=== PATIENT | female | born 1945 | race African-American/Black ===

== ENCOUNTER 2018-03-13 09:01 | Outpatient (CLI) | payer MEDICARE | END 2018-03-13 09:02 | disposition home or self-care (01) | LOC: BICMAMMO 09:01 | PROVIDERS: ATTEND Family Medicine | DX: N63.20 Unspecified lump in the left breast, unspecified quadrant (principal) | CPT/HCPCS: 76642; 77066; G0279 ==

== ENCOUNTER 2018-06-14 15:38 | Outpatient (CLI) | payer MEDICARE ==
--- NOTE | 2018-06-14 18:01 | ULT ---
LEFT BREAST ULTRASOUND: Date: 06/14/18 HISTORY: Left breast lump, history of trauma, follow-up. FINDINGS: Comparison made with exam of 03/13/18. The complex fluid collection at the 12 o'clock position of the left breast is again seen and smaller, currently measuring 1.8 x 1.5 x 1.0 cm. No internal flow is seen. IMPRESSION: BIRADS 3: Probably Benign Finding - Short-Interval Follow-Up Suggested Three month follow-up left breast ultrasound is recommended. POS: [facility]
== END 2018-06-14 15:39 | disposition home or self-care (01) ==
LOC: BICULT 15:38
PROVIDERS: ATTEND Family Medicine
DX: N63.22 Unspecified lump in the left breast, upper inner quadrant (principal)

== ENCOUNTER 2018-09-20 15:42 | Outpatient (CLI) | payer MEDICARE ==
--- NOTE | 2018-09-20 18:52 | ULT ---
LEFT BREAST ULTRASOUND LIMITED: 09/20/18 HISTORY: 72-year-old female presents for followup left breast ultrasound of a previously noted large left per st hematoma seen initially on 03/13/18 and also on a second followup study of 06/14/18. Initially, this hematoma measured approximately 4 cm in diameter. At the time of a 06/14/18 study, it had decreased in size measuring approximately 1.8 cm. On today's study in the 12 o'clock 1 cm from the nipple retroar eolar region there is an irregular hypoechoic shadowing focus without significant associated fluid bu t certainly this is in the region of the previously noted hematoma and most likely represents residua l scar tissue from the hematoma and now it measures approximately 1 x 1.4 cm in size. In addition, th ere is now at 12 o'clock 1 cm from the nipple, a small simple cyst measuring 0.3 x 0.4 cm. IMPRESSION: Decreasing size hematoma fluid collection in the left breast 12 o'clock 1 cm from the nipple retroare olar region now having more the appearance of scar tissue. Small simple cyst. BIRADS 3: Probably Benign Finding Initial Short-Interval Follow-Up Suggested Initial short-term follow up (usually 6-month) examination Six month followup breast ultrasound and diagnostic mammography is recommended for further assessment of this. POS: OFF
== END 2018-09-20 15:43 | disposition home or self-care (01) ==
LOC: BICULT 15:42
PROVIDERS: ATTEND Family Medicine
DX: N63.20 Unspecified lump in the left breast, unspecified quadrant (principal); N64.89 Other specified disorders of breast

== ENCOUNTER 2019-03-20 09:22 | Outpatient (CLI) | payer MEDICARE ==
--- NOTE | 2019-03-20 10:35 | BD ---
DEXA BONE DENSITY STUDY: LUMBAR SPINE BMD (g/cm2) T-SCORE Z-SCORE L1 0.867 -1.1 0.8 L2 0.885 -1.3 0.9 L3 0.966 -1.1 1.2 L4 1.024 -0.3 2.0 TOTAL 0.93 -1.0 1.2 FEMORAL NECK 0.856 0.1 1.9 TOTAL 0.883 -0.5 1.1 IMPRESSION: 1. Lumbar spine WHO classification is normal. Fracture risk is not increased. 2. Femoral neck WHO classification is normal. Fracture risk is not reported because all T-scores ar e at or above -1.0. POS: [facility]
--- NOTE | 2019-03-20 10:47 | MMO ---
Bilateral MAMMO Bilat Diag [facility]. CLINICAL HISTORY: Patient is 73 years old and is seen for follow-up at short-interval from prior study. The patient has no family history of breast cancer. The patient has no personal history of cancer. VIEWS: The views performed were: bilateral craniocaudal with tomosynthesis; bilateral mediolateral oblique with tomosynthesis; and bilateral mediolateral with tomosynthesis. FILMS COMPARED: The present examination has been compared to prior imaging studies performed at [facility] on 02/04/2015, 02/26/2016, 02/25/2017 and 03/13/2018. MAMMOGRAM FINDINGS: There are scattered fibroglandular densities. There is a focal asymmetry seen in the sub-areolar region of the left breast. This is in the location of prior mass (presumably reflecting resolved hematoma, no longer present) and likely reflects post traumatic change. In the right breast, there are no suspicious masses, calcifications or areas of architectural distortion. IMPRESSION: FOCAL ASYMMETRY IN THE LEFT BREAST IS PROBABLY BENIGN. FOLLOW-UP IN 6 MONTHS IS RECOMMENDED. THE RESULTS OF THIS EXAM WERE SENT TO THE PATIENT. ACR BI-RADS Category 3 - Probably benign finding - short interval follow-up suggested. [facility] will notify the patient of the need for additional imaging services. MAMMOGRAPHY NOTE: 1. A negative mammogram report should not delay a biopsy if a dominant of clinically suspicious mass is present. 2. Approximately 10% to 15% of breast cancers are not detected by mammography. 3. Adenosis and dense breasts may obscure an underlying neoplasm.
== END 2019-03-20 09:23 | disposition home or self-care (01) ==
LOC: BICMAMMO 09:22
PROVIDERS: ATTEND Family Medicine
DX: Z13.820 Encounter for screening for osteoporosis (principal); N63.0 Unspecified lump in unspecified breast; N64.89 Other specified disorders of breast
CPT/HCPCS: 77066; 77080; G0279

== ENCOUNTER 2019-10-02 09:39 | Outpatient (CLI) | payer MEDICARE ==
--- NOTE | 2019-10-02 10:16 | MMO ---
Left Breast MAMMO Unilat Diag [facility]DI LT+JESSIE. CLINICAL HISTORY: Patient is 73 years old and is seen for follow-up at short-interval from prior study. The patient has no family history of breast cancer. The patient has no personal history of cancer. VIEWS: The views performed were: left craniocaudal with tomosynthesis; left mediolateral oblique with tomosynthesis; and left mediolateral with tomosynthesis. FILMS COMPARED: The present examination has been compared to prior imaging studies performed at [facility] on 02/26/2016, 02/25/2017, 03/13/2018 and 03/20/2019. This study has been interpreted with the assistance of computer-aided detection. MAMMOGRAM FINDINGS: There are scattered fibroglandular densities. There is a focal asymmetry seen in the sub-areolar region of the left breast. This is decreased in size with respect to prior, compatible with expected evolution of post-traumatic change. There are no suspicious masses, suspicious calcifications, or new areas of architectural distortion. IMPRESSION: THERE IS NO MAMMOGRAPHIC EVIDENCE OF MALIGNANCY. THE PATIENT WILL BE DUE IN SIX MONTHS FOR ANNUAL SCREENING. A ROUTINE FOLLOW-UP MAMMOGRAM IN 6 MONTHS IS RECOMMENDED. THE RESULTS OF THIS EXAM WERE SENT TO THE PATIENT. ACR BI-RADS Category 2 - Benign finding MAMMOGRAPHY NOTE: 1. A negative mammogram report should not delay a biopsy if a dominant of clinically suspicious mass is present. 2. Approximately 10% to 15% of breast cancers are not detected by mammography. 3. Adenosis and dense breasts may obscure an underlying neoplasm. Reported by: YANY PRATER MD Electonically Signed: [id number]
== END 2019-10-02 09:40 | disposition home or self-care (01) ==
LOC: BICMAMMO 09:39
PROVIDERS: ATTEND Surgery
DX: R92.8 Other abnormal and inconclusive findings on diagnostic imaging of breast (principal)
CPT/HCPCS: 77065; G0279

== ENCOUNTER 2020-03-25 09:19 | Outpatient (CLI) | payer MEDICARE ==
--- NOTE | 2020-03-25 11:02 | MMO ---
Bilateral MAMMO Bilat Screen [facility]. CLINICAL HISTORY: Patient is 74 years old and is seen for screening. The patient has no family history of breast cancer. The patient has no personal history of cancer. VIEWS: The views performed were: bilateral craniocaudal with tomosynthesis and bilateral mediolateral oblique with tomosynthesis. FILMS COMPARED: The present examination has been compared to prior imaging studies performed at [facility] on 02/25/2017, 03/13/2018, 03/20/2019 and 10/02/2019. This study has been interpreted with the assistance of computer-aided detection. MAMMOGRAM FINDINGS: There are scattered fibroglandular densities. Finding 1: There is a stable focal asymmetry seen in the left breast. Finding 2: Benign calcifications are noted bilaterally. There are no suspicious masses, suspicious calcifications, or new areas of architectural distortion. IMPRESSION: THERE IS NO MAMMOGRAPHIC EVIDENCE OF MALIGNANCY. A ROUTINE FOLLOW-UP MAMMOGRAM IN 1 YEAR IS RECOMMENDED. THE RESULTS OF THIS EXAM WERE SENT TO THE PATIENT. ACR BI-RADS Category 2 - Benign finding MAMMOGRAPHY NOTE: 1. A negative mammogram report should not delay a biopsy if a dominant of clinically suspicious mass is present. 2. Approximately 10% to 15% of breast cancers are not detected by mammography. 3. Adenosis and dense breasts may obscure an underlying neoplasm. Reported by: EFRA STORY MD Electonically Signed: [id number]
== END 2020-03-25 09:20 | disposition home or self-care (01) ==
LOC: BICMAMMO 09:19
PROVIDERS: ATTEND Student in an Organized Health Care Education/Training Program
DX: Z12.31 Encounter for screening mammogram for malignant neoplasm of breast (principal)
CPT/HCPCS: 77063; 77067

== ENCOUNTER 2021-01-07 09:53 | Outpatient (CLI) | payer MEDICARE | END 2021-01-07 09:54 | disposition home or self-care (01) | LOC: NM 09:53 | PROVIDERS: ATTEND Specialist | DX: M97.02XA Periprosthetic fracture around internal prosthetic left hip joint, initial encounter (principal) | CPT/HCPCS: 78315; A9503 ==

== ENCOUNTER 2022-03-29 09:59 | Outpatient (CLI) | payer MEDICARE | END 2022-03-29 10:00 | disposition home or self-care (01) | LOC: BICMAMMO 09:59 | PROVIDERS: ATTEND Student in an Organized Health Care Education/Training Program | DX: Z12.31 Encounter for screening mammogram for malignant neoplasm of breast (principal) | CPT/HCPCS: 77063; 77067 ==

== ENCOUNTER 2023-08-19 13:37 | Outpatient (CLI) | payer OTHER | END 2023-08-19 13:38 | disposition home or self-care (01) | LOC: BICRAD 13:37 | PROVIDERS: ATTEND Nurse Practitioner Family | DX: M25.552 Pain in left hip (principal); M54.32 Sciatica, left side; Z96.642 Presence of left artificial hip joint; Z96.641 Presence of right artificial hip joint | CPT/HCPCS: 72170 ==

== ENCOUNTER 2025-07-09 11:07 | Outpatient (CLI) | payer OTHER | END 2025-07-09 11:08 | disposition home or self-care (01) | LOC: BICMAMMO 11:07 | PROVIDERS: ATTEND Family Medicine | DX: M81.0 Age-related osteoporosis without current pathological fracture (principal) | CPT/HCPCS: 77080 ==